=== PATIENT | male | born 1945 | race Caucasian/White ===

== ENCOUNTER 2019-06-23 19:38 | Emergency (ER) | payer OTHER ==
--- NOTE | 2019-06-23 20:01 | EDM.PDOC ---
ED HPI GENERAL MEDICAL PROBLEM - General Chief Complaint: Head Injury Stated Complaint: [facility] Time Seen by Provider: 06/23/19 19:40 Source of Information: Reports: Patient History Limitations: Reports: Intoxication - History of Present Illness INITIAL COMMENTS - FREE TEXT/NARRATIVE: Mr. Chatterjee is a very pleasant 74-year-old man with a past medical history significant for hypertension, dyslipidemia, diabetes, and coronary artery disease, who is now brought to the ED by [facility] after he fell outside twice, striking his head both times. The event was witnessed by his neighbor, who called the paramedics. The neighbor informed EMS that there was no loss of consciousness, and the patient states the same. The patient acknowledges that he drank more than he usually does today; he states that he ordinarily drinks 2 to 3 cocktails per day, but that he drank 4 to 5 today. The patient denies any other injuries, such as to his wrists, knees, or ribs. The patient denies recent fever, chills, sore throat, ear pain, nasal or sinus congestion, cough, dyspnea, chest pain, palpitations, nausea, vomiting, constipation, diarrhea, abdominal pain, urinary symptoms, recent weight gain or weight loss, recent bloody bowel movements or black bowel movements, recent joint aches, headaches, or rashes. Here in the ED, the patient is found to be hemodynamically stable, afebrile, saturating 92% on room air. The patient states that he takes his antihypertensive and dyslipidemia medications as prescribed, and that he also takes a baby aspirin per day. He states that he does not check his blood glucose, and does not take any medications for his diabetes. The [facility] - Related Data Allergies Allergy/AdvReac Type Severity Reaction Status Date / Time No Known Allergies Allergy Verified 07/19/15 08:11 Past Medical History Cardiovascular History: Reports: CAD, High Cholesterol, Hypertension Endocrine/Metabolic History: Reports: Diabetes, Type II (untreated) - Past Surgical History HEENT Surgical History: Reports: Cataract Surgery (bilateral) Cardiovascular Surgical History: Reports: Coronary Artery Stent (x 1) Social & Family History - Tobacco Use Smoking Status *Q: Heavy Tobacco Smoker Years of Tobacco use: 60 Packs/Tins Daily: 3 Packs/Tins Daily Comment: Down from >3 ppd - Alcohol Use Alcohol Use History: Yes Number of Drinks Per Day: 5 Alcohol Use Frequency: Daily - Recreational Drug Use Recreational Drug Use: No - Living Situation & Occupation Living situation: Reports: Single, Alone Occupation: Retired ED ROS GENERAL - Review of Systems Review Of Systems: Comprehensive ROS is negative, except as noted in HPI. ED EXAM, HEAD INJURY - Physical Exam Exam: See Below Exam Limited By: No Limitations General Appearance: Alert, WD/WN, No Apparent Distress, Other (Dirty/disheveled) Head: Normocephalic, Facial Swelling (nontender hematoma to left forehead) Eyes: Bilateral Eye: EOMI, Normal Inspection (s/p cataract surgery) Ears: Normal External Exam, Normal Canal, Hearing Grossly Normal, Normal TMs Nose: Normal Inspection, Normal Mucousa, Other (Small amount of dried blood outside the nose, but the source is unknown - no blood seen within either nostril) Throat/Mouth: Normal Inspection, Normal Lips, Normal Teeth, Normal Gums, Normal Oropharynx, Normal Voice, No Airway Compromise Neck: Non-Tender, Full Range of Motion, Normal Alignment, Normal Inspection Respiratory: No Respiratory Distress, Lungs Clear, Normal Breath Sounds, No Accessory Muscle Use, Chest Non-Tender Cardiovascular: Normal Peripheral Pulses, Regular Rate, Rhythm, No Edema, No Gallop, No JVD, No Murmur, No Rub GI/Abdominal Exam: Normal Bowel Sounds, Soft, Non-Tender, No Organomegaly, No Distention, No Abnormal Bruit, No Mass (Male) Exam: Deferred Rectal (Males) Exam: Deferred Back Exam: Full Range of Motion, Normal Inspection, NT Extremities: Normal Inspection, Normal Range of Motion, Non-Tender, No Pedal Edema, Normal Capillary Refill Neurologic: apprentice electrician II-XII nml As Tested, No Motor/Sensory Deficits, Alert, Oriented x 3 Skin: Normal Color, Warm/Dry EKG INTERPRETATION EKG Date: 06/23/19 Time: 19:59 Rhythm: NSR Rate (Beats/Min): 79 [place]: Normal P-Wave: Present QRS: Wide (Nonspecific intraventricular conduction delay) ST-T: Normal QT: Normal Comparison: NA - No Prior EKG Course - Vital Signs Last Recorded V/S: Last Vital Signs Temp 36.8 C 06/23/19 19:43 Pulse 77 06/23/19 21:16 Resp 14 06/23/19 21:16 BP 119/57 L 06/23/19 21:16 Pulse Ox 93 L 06/23/19 21:16 Orthostatic Blood Pressure [ 118/54 Standing] Orthostatic Blood Pressure [ 112/59 Supine] - Orders/Labs/Meds Orders: Active Orders 24 hr Category Date Time Status Accu Check [Blood Glucose Check, Bedside] [RC] ONETIME Care 06/23/19 19:55 Active EKG Documentation Completion [RC] STAT Care 06/23/19 19:54 Active Orthostatic Vital Signs [RC] STAT Care 06/23/19 19:55 Active Labs: Laboratory Tests 06/23/19 06/23/19 06/23/19 Range/Units 20:03 20:15 20:15 WBC 7.53 (4.23-9.07) K/mm3 RBC 4.06 L (4.63-6.08) M/mm3 Hgb 14.1 (13.7-17.5) gm/dl Hct 41.4 (40.1-51.0) % MCV 102.0 H (79.0-92.2) fl MCH 34.7 H (25.7-32.2) pg MCHC 34.1 (32.2-35.5) g/dl RDW Std Deviation 51.7 H (35.1-43.9) fL Plt Count 294 (163-337) K/mm3 MPV 8.9 L (9.4-12.3) fl Neutrophils % (Manual) 75 H (40-60) % Band Neutrophils % 0 (0-10) % Lymphocytes % (Manual) 17 L (20-40) % Atypical Lymphs % 0 % Monocytes % (Manual) 3 (2-10) % Eosinophils % (Manual) 4 (0.8-7.0) % Basophils % (Manual) 1 (0.2-1.2) Platelet Estimate Adequate Poikilocytosis 1+ slight Anisocytosis Np1 Macrocytosis 1+ slight Ovalocytes 1+ slight RBC Morph Comment Not Reportable PT (9.7-12.0) SECONDS INR APTT (22-31) SECONDS Sodium 132 L (136-145) mEq/L Potassium 3.9 (3.5-5.1) mEq/L Chloride 96 L (98-107) mEq/L Carbon Dioxide 27 (21-32) mEq/L Anion Gap 12.9 (5-15) BUN 23 H (7-18) mg/dL Creatinine 1.2 (0.7-1.3) mg/dL Est Cr Clr Drug Dosing 48.96 mL/min Estimated GFR (MDRD) 59 (>60) mL/min BUN/Creatinine Ratio 19.2 H (14-18) Glucose 103 (83-115) mg/dL POC Glucose 104 (83-110) mg/dL Calcium 8.9 (8.5-10.1) mg/dL Magnesium 2.1 (1.8-2.4) mg/dl Total Bilirubin 0.5 (0.2-1.0) mg/dL AST 25 (15-37) U/L ALT 19 (16-63) U/L Alkaline Phosphatase 74 (46-116) U/L Troponin I < 0.017 (0.00-0.056) ng/mL Total Protein 7.6 (6.4-8.2) g/dl Albumin 3.1 L (3.4-5.0) g/dl Globulin 4.5 gm/dL Albumin/Globulin Ratio 0.7 L (1-2) TSH 3rd Generation 1.281 (0.358-3.74) uIU/mL Ethyl Alcohol 0.21 (0.00) gm% //20 Range/Units 20:15 WBC (4.23-9.07) K/mm3 RBC (4.63-6.08) M/mm3 Hgb (13.7-17.5) gm/dl Hct (40.1-51.0) % MCV (79.0-92.2) fl MCH (25.7-32.2) pg MCHC (32.2-35.5) g/dl RDW Std Deviation (35.1-43.9) fL Plt Count (163-337) K/mm3 MPV (9.4-12.3) fl Neutrophils % (Manual) (40-60) % Band Neutrophils % (0-10) % Lymphocytes % (Manual) (20-40) % Atypical Lymphs % % Monocytes % (Manual) (2-10) % Eosinophils % (Manual) (0.8-7.0) % Basophils % (Manual) (0.2-1.2) Platelet Estimate Poikilocytosis Anisocytosis Macrocytosis Ovalocytes RBC Morph Comment PT 10.0 (9.7-12.0) SECONDS INR 0.93 APTT 26 (22-31) SECONDS Sodium (136-145) mEq/L Potassium (3.5-5.1) mEq/L Chloride (98-107) mEq/L Carbon Dioxide (21-32) mEq/L Anion Gap (5-15) BUN (7-18) mg/dL Creatinine (0.7-1.3) mg/dL Est Cr Clr Drug Dosing mL/min Estimated GFR (MDRD) (>60) mL/min BUN/Creatinine Ratio (14-18) Glucose (83-115) mg/dL POC Glucose (83-110) mg/dL Calcium (8.5-10.1) mg/dL Magnesium (1.8-2.4) mg/dl Total Bilirubin (0.2-1.0) mg/dL AST (15-37) U/L ALT (16-63) U/L Alkaline Phosphatase (46-116) U/L Troponin I (0.00-0.056) ng/mL Total Protein (6.4-8.2) g/dl Albumin (3.4-5.0) g/dl Globulin gm/dL Albumin/Globulin Ratio (1-2) TSH 3rd Generation (0.358-3.74) uIU/mL Ethyl Alcohol (0.00) gm% - Re-Assessments/Exams Free Text/Narrative Re-Assessment/Exam: 06/23/19 19:56 As above, the patient drank excessively today, then fell twice, striking his left forehead both times. No loss of consciousness, and his neurologic examination is unremarkable, nevertheless, because the patient is a chronic daily alcoholic, I believe a CT scan of the head without contrast is indicated. In addition, I have ordered a work-up that includes orthostatics, blood work, and an ECG. 06/23/19 20:10 The patient's Accu-Chek is 104. He is not orthostatic. 06/23/19 20:50 CT of the head without contrast as read by Dr. Alonzo as: 1. Prominent mucosal thickening within the right maxillary sinus. Please correlate that patient has no symptoms of acute sinusitis. Findings most likely relating to chronic sinusitis. 2. Senescent change as described above. 3. Old healed bony trauma to the right zygomatic arch. 4. No acute intracranial abnormality is appreciated. 06/23/19 21:12 The patient's CBC is unremarkable. His CMP is remarkable for a sodium mildly depressed at 132, and a BUN slightly elevated at 23 with a Cr normal at 1.2, and the remainder of his CMP being unremarkable. His magnesium level is within normal limits at 2.1. His troponin is undetectably low. His TSH is within normal limits at 1.281. His coags are within normal limits. His EtOH level is elevated at 0.21. 06/23/19 21:16 Test results discussed with the patient. As above, today's work-up is unremarkable, with the exception of an alcohol level elevated at 0.21. Provided the patient can find a ride home, he may be safely discharged. Departure - Departure Time of Disposition: 21:17 Disposition: Home, Self-Care 01 Condition: Good Clinical Impression: Alcohol intoxication, Alcoholism, Fall at home, Traumatic hematoma of forehead - Discharge Information *PRESCRIPTION DRUG MONITORING PROGRAM REVIEWED*: Not Applicable *COPY OF PRESCRIPTION DRUG MONITORING REPORT IN PATIENT ILDEFONSO: Not Applicable Instructions: Alcohol Intoxication, [id number], Contusion, [id number] Referrals: Sera Banegas MD [Primary Care Provider] - Forms: ED Department Discharge Additional Instructions: You were seen in the emergency room after imbibing too much alcohol today, then falling, twice, striking your head both times. Work-up in the ER included blood work, positional blood pressure checks, a CT scan of your head, and an ECG. Your work-up found your alcohol level to be significantly elevated at 0.21. For reference, that is nearly 3 times the upper legal limit for driving. The remainder of your work-up was unremarkable. No significant head injury was found. We recommend that you seek professional help in stopping drinking. We recommend that you go to [facility]: [address] [place] [phone] If any other problems, please do not hesitate to return to the ER. Sepsis Event Note - Evaluation Sepsis Screening Result: No Definite Risk - Focused Exam Vital Signs: Vital Signs Temp Pulse Pulse Resp BP BP Pulse Ox 06/23/19 21:16 77 14 119/57 L 93 L 06/23/19 21:15 75 15 93 L 06/23/19 21:01 76 19 107/72 92 L 05/07/20 21:00 75 17 92 L 06/23/19 20:57 23 H 06/23/19 19:43 36.8 C 83 22 H 141/68 H Date Exam was Performed: 06/23/19 Time Exam was Performed: 21:38 - My Orders Last 24 Hours: My Active Orders 06/23/19 19:54 EKG Documentation Completion [RC] STAT 06/23/19 19:55 Accu Check [Blood Glucose Check, Bedside] [RC] ONETIME Orthostatic Vital Signs [RC] STAT - Assessment/Plan Last 24 Hours: My Active Orders 06/23/19 19:54 EKG Documentation Completion [RC] STAT 06/23/19 19:55 Accu Check [Blood Glucose Check, Bedside] [RC] ONETIME Orthostatic Vital Signs [RC] STAT
--- NOTE | 2019-06-23 20:43 | CT ---
Head CT Technique: Multiple axial sections through the brain were obtained. Intravenous contrast was not utilized. Comparison: No prior intracranial imaging is available. Findings: Ventricles along with basal cisterns and sulci over the convexities are moderately prominent. Mild areas of diminished density are noted within periventricular white matter most likely from small vessel ischemic demyelination change. No other abnormal parenchymal densities are seen. No evidence of intracranial hemorrhage. No midline shift or mass-effect is appreciated. Bone window settings were reviewed. There is fairly prominent mucosal thickening within the right maxillary sinus. Other visualized paranasal sinuses are clear. Visualized mastoid sinuses are clear. No acute calvarial finding is seen. Impression: 1. Prominent mucosal thickening within the right maxillary sinus. Please correlate that patient has no symptoms of acute sinusitis. Findings most likely relating to chronic sinusitis. 2. Senescent change as described above. 3. Old healed bony trauma of the right zygomatic arch. 4. No acute intracranial abnormality is appreciated. Diagnostic code #2 This report was dictated in MDT
== END 2019-06-23 21:30 | disposition home or self-care (01) ==
LOC: JD.ED 19:38
DX: S00.83XA Contusion of other part of head, initial encounter (principal); F10.229 Alcohol dependence with intoxication, unspecified; F17.210 Nicotine dependence, cigarettes, uncomplicated; I10 Essential (primary) hypertension; E11.9 Type 2 diabetes mellitus without complications; I25.10 Atherosclerotic heart disease of native coronary artery without angina pectoris; W22.8XXA Striking against or struck by other objects, initial encounter; Y92.009 Unspecified place in unspecified non-institutional (private) residence as the place of occurrence of the external cause
CPT/HCPCS: 36415; 70450; 70450-26; 80053; 80307; 82962; 83735; 84443; 84484; 85007; 85027; 85610; 85730; 93005; 93010; 99283; 99284-25